=== PATIENT | female | born 1970 | race Caucasian/White ===

== ENCOUNTER 2019-07-05 17:02 | Emergency (ER) | payer OTHER ==
[~2019-07-05] VITALS: Ht 170.2 cm; Wt 68.0 kg
[2019-07-05 17:09] VITALS: BP 141/87
[2019-07-05] MEDS ORDERED: NEURONTIN600 MG PO ×2 (17:14→17:17)
[2019-07-05] MEDS ORDERED: SYNTHROID200 MCG PO ×2 (17:14→17:17)
[2019-07-05] MEDS ORDERED: PROZAC20 MG PO ×2 (17:14→17:17)
[2019-07-05] MEDS ORDERED: CLARITIN10 MG PO (17:15)
[2019-07-05] MEDS ORDERED: LASIX 20 MG TAB20 MG PO ×2 (17:15→17:17)
== END 2019-07-05 17:22 | disposition home or self-care (01) ==
LOC: M.ERS 17:02
DX: R11.2 Nausea with vomiting, unspecified (principal); Z76.0 Encounter for issue of repeat prescription; R51 Headache; F17.200 Nicotine dependence, unspecified, uncomplicated; Z88.8 Allergy status to other drugs, medicaments and biological substances; Z88.2 Allergy status to sulfonamides; Z98.890 Other specified postprocedural states; Z90.710 Acquired absence of both cervix and uterus; Z90.49 Acquired absence of other specified parts of digestive tract

== ENCOUNTER 2020-01-05 19:48 | Emergency (ER) | payer OTHER ==
[~2020-01-05] VITALS: Ht 170.2 cm; Wt 68.0 kg
[~2020-01-05 19:48] MED LIST: CLARITIN10 MG PO; LASIX 20 MG TAB20 MG PO; NEURONTIN600 MG PO; PROZAC20 MG PO; SYNTHROID200 MCG PO
[2020-01-05] MEDS ORDERED: LEVO-T200 MCG PO (20:41)
[2020-01-05] MEDS ORDERED: NEURONTIN 300M300 M2 PO (20:41)
[2020-01-05] MEDS ORDERED: PROZAC40 MG PO (20:41)
[2020-01-05 20:44] VITALS: BP 122/74
== END 2020-01-05 20:45 | disposition home or self-care (01) ==
LOC: M.ERS 19:48
DX: M19.90 Unspecified osteoarthritis, unspecified site (principal); E89.0 Postprocedural hypothyroidism; Z76.0 Encounter for issue of repeat prescription; Z90.710 Acquired absence of both cervix and uterus; Z98.84 Bariatric surgery status; Z79.899 Other long term (current) drug therapy; Z88.5 Allergy status to narcotic agent; Z88.2 Allergy status to sulfonamides; Z88.6 Allergy status to analgesic agent